=== PATIENT | female | born 1980 | race Caucasian/White ===

== ENCOUNTER 2023-01-07 13:00 | Outpatient (CLI) | payer BC ==
[2023-01-07 15:01] LABS: #Eosinphils 0.3 10x3/uL (0.0-0.5); #Monocytes 0.3 10x3/uL (0.0-1.1); #Neutrophils 4.6 10x3/uL (1.5-8.4); %Basophils 0.6 % (0.0-2.0); %Eosinophils 4.9 % (0.0-6.0); %Lymphocytes 24.2 % (18.0-47.0); %Monocytes 4.9 % (0.0-10.0); %Neutrophils 65.3 % (40.0-75.0); Hematocrit 40.1 % (34.9-44.5); Hemoglobin 13.7 g/dL (12.0-15.5); Mean Corpuscular HGB CONC 34.2 g/dL (32.0-36.0); Mean Corpuscular Hemoglobin 31.1 pg (27.0-33.0); Mean Corpuscular Volume 91.1 fl (81.6-98.3); Mean Platelet Volume 10.4 fl (7.4-10.4); Platelet Count 286 10x3/uL (150-450)
[2023-01-07 15:02] LABS: BHCG - Serum Negative (NEGATIVE); Pregs Control Background? CLEAR/WHITE (CLR/WHITE); Pregs Control Bar Appear? YES (CONTROL BAR)
== END 2023-01-07 13:01 | disposition home or self-care (01) ==
LOC: LABBT 13:00
PROVIDERS: ATTEND Orthopaedic Surgery
DX: Z01.812 Encounter for preprocedural laboratory examination (principal); M24.811 Other specific joint derangements of right shoulder, not elsewhere classified
CPT/HCPCS: 84703; 85025

== ENCOUNTER 2023-01-12 08:14 | Day surgery (SDC) | payer BC ==
[2023-01-07 13:59] VITALS: BMI 22.2
[2023-01-12] MEDS ORDERED: fentaNYL PF 100 MCG/2 ML SYRINGE ONE (10:24)
[2023-01-12] MEDS ORDERED: PROPOFOL 20 ML ONE (10:24)
[2023-01-12] MEDS ORDERED: Rocuronium Bromide 10 MG/ML (10ML VIAL) ONE ×2 (10:33→10:54)
[2023-01-12] MEDS ORDERED: Ondansetron PF 4 MG/2 ML Vial ONE ×2 (10:33→10:54)
[2023-01-12] MEDS ORDERED: Dexamethasone 20 MG/5 ML VIAL ONE (10:33)
[2023-01-12] MEDS ORDERED: Lidocaine 1% PF 5 ML VIAL ONE ×2 (10:33→10:54)
[2023-01-12] MEDS ORDERED: Bupivacaine 0.25% HCL 30 ML VIAL ONE (10:35)
[2023-01-12] MEDS ORDERED: EPINEPHrine 1 MG/ML VIAL ONE (10:35)
[2023-01-12] MEDS ORDERED: Sodium Chloride 0.9% 100 ML ONE (10:43)
[2023-01-12] MEDS ORDERED: CEFAZOLIN 2 GM VIAL ONE (10:43)
[2023-01-12] MEDS ORDERED: fentaNYL 50 mcg/mL 1 mL Vial ONE (10:45)
[2023-01-12] MEDS ORDERED: Bupivacaine PF 0.5% 30 ML VIAL ONE (10:45)
[2023-01-12] MEDS ORDERED: PROPOFOL 200 MG/20 ML VIAL ONE (10:54)
[2023-01-12] MEDS ORDERED: SUGAMMADEX SODIUM 200 MG/2 ML VIAL ONE (12:01)
[2023-01-12] MEDS ORDERED: HYDROcodone/Acetaminophen 5/325 mg Tablet ONE (13:21)
== END 2023-01-12 14:08 | disposition home or self-care (01) ==
LOC: SDC 08:14
PROVIDERS: ATTEND Orthopaedic Surgery
PROC: 0LS34ZZ Reposition Right Upper Arm Tendon, Percutaneous Endoscopic Approach (ICD-10-PCS; principal; 2023-01-12)
PROC: 0RQJ4ZZ Repair Right Shoulder Joint, Percutaneous Endoscopic Approach (ICD-10-PCS; principal; 2023-01-12)
DX: S43.431A Superior glenoid labrum lesion of right shoulder, initial encounter (principal); M67.813 Other specified disorders of tendon, right shoulder; M24.811 Other specific joint derangements of right shoulder, not elsewhere classified; G25.89 Other specified extrapyramidal and movement disorders; X58.XXXA Exposure to other specified factors, initial encounter; Z88.0 Allergy status to penicillin
CPT/HCPCS: C1713; J0171; J1100; J2405; J2704; J3010; J3490; S0020